=== PATIENT | male | born 1985 | race Two or more races ===

== ENCOUNTER 2023-07-07 18:40 | Emergency (ER) | payer OTHER ==
[~2023-07-07] VITALS: Ht 165.1 cm; Wt 65.9 kg
[2023-07-07 18:55] VITALS: BP 121/77; PULSE 92; RESP 15; TEMP 98.2
[2023-07-07] MEDS ORDERED: ACETAMINOPHEN 500 MG TABLET PO ONE (19:15)
[2023-07-07] MEDS ORDERED: IBUPROFEN 600 MG TABLET PO ONE (19:15)
== END 2023-07-07 22:21 | disposition home or self-care (01) ==
LOC: EMS 18:45
DX: S63.601A Unspecified sprain of right thumb, initial encounter (principal); X58.XXXA Exposure to other specified factors, initial encounter; Y93.68 Activity, volleyball (beach) (court); Y92.89 Other specified places as the place of occurrence of the external cause; Y99.8 Other external cause status
CPT/HCPCS: 99283